=== PATIENT | male | born 1965 | race Caucasian/White ===

== ENCOUNTER 2018-12-15 07:10 | Day surgery (SDC) | payer BC ==
[~2018-12-15 07:10] MED LIST: CEFAZOLIN 2 GM/50 ML (PMX) 50 ML IVPB
[2018-12-15] MEDS: SOD CHLORIDE 0.9% 1,000 ML IV (08:01)
[2018-12-15] MEDS ORDERED: PROPOFOL 20 ML (08:50)
[2018-12-15] MEDS ORDERED: LIDOCAINE 2% (SDV) 5 ML INJ (08:50)
[2018-12-15] MEDS ORDERED: ROCURONIUM 50 MG INJ (08:50)
[2018-12-15] MEDS ORDERED: CEFAZOLIN 1 GM INJ (08:54)
[2018-12-15] MEDS: POLYMYXIN/BACITRACIN 1L IRRIG IRR ×2 (09:43→10:10)
[2018-12-15] MEDS ORDERED: NEOSTIGMINE 3 MG/3 ML SYRINGE (10:05)
[2018-12-15] MEDS ORDERED: GLYCOPYRROLATE 0.4 MG INJ (10:05)
[2018-12-15] MEDS: BUPIVACAINE 0.25% (MPF) 30 ML INJ (10:10)
[2018-12-15] MEDS ORDERED: POLYMYXIN/BACITRACIN 1L IRRIG (10:12)
[2018-12-15] MEDS ORDERED: MEPERIDINE 25 MG INJ (10:18)
[2018-12-15] MEDS ORDERED: FENTAnyl 50 MCG/ML VIAL (10:18)
[2018-12-15] MEDS: MEPERIDINE 25 MG INJ IV (10:22)
[2018-12-15] MEDS: FENTAnyl 50 MCG/ML VIAL IV ×2 (10:23→10:42)
[2018-12-15] MEDS ORDERED: ALBUTEROL 0.083% (NEB) 2.5 MG/3 ML AMP HHN (10:30)
[2018-12-15] MEDS ORDERED: FENTAnyl 50 MCG/ML VIAL IV ×2 (10:30)
[2018-12-15] MEDS ORDERED: EPHEDrine 25 MG/5 ML SYG IV (10:30)
[2018-12-15] MEDS ORDERED: hydrALAzine 20 MG INJ IV (10:30)
[2018-12-15] MEDS ORDERED: LABETALOL HCL 20MG INJ IV (10:30)
[2018-12-15] MEDS ORDERED: DIPHENHYDRAMINE 50 MG INJ IV (10:30)
[2018-12-15] MEDS ORDERED: HYDROmorphONE 1 MG/5 ML IV SYRINGE IV (10:30)
[2018-12-15] MEDS ORDERED: ONDANSETRON 4 MG INJ IV (10:30)
[2018-12-15] MEDS ORDERED: OXYCODONE/ACETAMINOPHEN (5/325) TAB PO ×2 (10:30)
[2018-12-15] MEDS: HYDROmorphONE 1 MG/5 ML IV SYRINGE IV ×3 (10:47→11:03)
[2018-12-15] MEDS: HYDROCODONE/APAP (5/325) TAB PO ×2 (11:04→11:07)
[2018-12-15] MEDS: KETOROLAC 30 MG INJ IV (11:10)
== END 2018-12-15 12:23 | disposition home or self-care (01) ==
LOC: SDS 07:10
DX: K43.6 Other and unspecified ventral hernia with obstruction, without gangrene (principal)
CPT/HCPCS: 49653